=== PATIENT | male | born 1990 | race Caucasian/White ===

== ENCOUNTER 2018-11-07 13:24 | Outpatient (CLI) | payer BC ==
[~2018-11-07 13:24] MED LIST: Sodium Chloride 0.9% 15 ML NEB ONE
--- NOTE | 2018-11-07 15:16 | HP ---
HISTORY OF PRESENT ILLNESS: Mr. Jaime Ponce is a very pleasant 28-year-old gentleman, who presents to the [facility] for evaluation of an ulceration of the left medial lower leg. The patient states that the ulceration was first noted approximately 3 years ago. He states that over 4 to 5 months the wound subsequently healed with the application of Neosporin and a Band-Aid. The patient states that in April of this year, the wound recurred with greater dimensions than the wound noted three years ago. The patient states that since April of this year, the dimensions have not changed. The patient states that he is treating the ulceration with Bactroban followed by gauze, and at times an Oscar bandage. The patient is presently taking levofloxacin. The patient states he was seen in Urgent Care, and subsequently, referred to the [facility]ound Center for further evaluation and treatment. PAST MEDICAL HISTORY: Negative. PAST SURGICAL HISTORY: Negative. MEDICATIONS: Levaquin. ALLERGIES: NO KNOWN DIAGNOSED ALLERGIES. SOCIAL HISTORY: The patient admits to the occasional use of tobacco in high school. The patient admits to the occasional consumption of alcohol. FAMILY HISTORY: Family history is significant for diabetes mellitus. The patient's great grandmother was diagnosed with diabetes mellitus. The family history is negative for coronary artery disease. PHYSICAL EXAMINATION: VITAL SIGNS: Temperature 98.1, pulse 75, respirations 20, blood pressure 138/62. GENERAL: A 28-year-old gentleman sitting on table in examination room, in no acute distress. HEENT: Normocephalic and atraumatic. NECK: No nuchal rigidity. CHEST: Clear to auscultation. CV: Regular rate and rhythm. ABDOMEN: Soft. EXTREMITIES: An ulceration of the left medial lower leg is present, which measures approximately 1.2 x 0.9 cm. Nonviable tissue present within the wound margins was debrided with an excisional full-thickness debridement. No purulent drainage is associated with the wound. No erythema of the skin surrounding the wound is present. No maceration of the skin of the periwound is noted. A dorsalis pedis pulse and posterior tibial pulse are both palpable on the left. No significant edema of the left foot or lower leg is present on exam today. Varicosities are present over the left lower extremity. 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 Promogran, Hydrofera Blue, Webril, and the 3M Coban 2 Layer Compression System will be applied to the ulceration today. The patient is to continue Levaquin as previously prescribed. I will see Mr. Ponce again in 1 week. The patient has been instructed to keep the compression wrap applied in clinic today clean, dry, and intact until his followup visit in 1 week. The patient understands and is in agreement with the preceding treatment plan. Job ID: [id number]
== END 2018-11-07 13:25 | disposition home or self-care (01) ==
LOC: WCC 13:24
PROVIDERS: ATTEND Family Medicine
DX: I87.322 Chronic venous hypertension (idiopathic) with inflammation of left lower extremity (principal)
CPT/HCPCS: A4218

== ENCOUNTER 2018-11-15 10:21 | Outpatient (CLI) | payer BC ==
[~2018-11-15 10:21] MED LIST changes: +Lidocaine 2% 11 ML SYR ONE
--- NOTE | 2018-11-15 11:15 | PRG ---
DATE OF SERVICE: 11/15/2018 HISTORY: Mr. Jaime Ponce is a very pleasant 28-year-old gentleman, who presents to the [facility] for evaluation of an ulceration of the left medial lower leg. At the time of the patient's initial presentation to the Wound Center, Mr. Ponce stated that the ulceration was first noted three years previously. He stated that over 4 to 5 months, the wound subsequently healed with the application of Neosporin and a Band-Aid. The patient stated that in April of this year, the wound recurred with greater dimensions than the wound noted three years ago. The patient stated that at the time of his initial visit to the Wound Center, the dimensions had not changed since April of this year. The patient stated that he had been treating the ulceration with Bactroban followed by gauze and at times an Oscar bandage. At the time of the patient's initial visit to the Wound Center, Mr. Ponce was taking Levaquin. The patient stated that he was seen in Urgent Care and subsequently referred to the Wound Center for further evaluation and treatment. PHYSICAL EXAMINATION: VITAL SIGNS: Temperature 97.6, pulse 60, respirations 20, and blood pressure 131/61. EXTREMITIES: An ulceration of the left medial lower leg is present, which measures approximately 1.0 x 0.9 cm. The dimensions of the wound at the time of the patient's last visit were approximately 1.2 x 0.9 cm. Granulation tissue is present within the wound margins. Nonviable tissue present within the wound margins was debrided with an excisional full-thickness debridement with the use of a curette. No purulent drainage is associated with the wound. No erythema of the skin surrounding the wound is present. No maceration of the skin of the periwound is noted. No significant edema of the left foot or lower leg is present on exam today. Prominent varicosities are present over the left thigh and left lower leg. 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 Promogran, Hydrofera Blue, Webril, and the 3M Coban 2 Layer Compression System will be applied to the ulceration today. I will see Mr. Ponce again in 1 week. Again, the patient has been instructed to keep the compression wrap applied in clinic today clean, dry, and intact until his followup visit in 1 week. Job ID: [id number]
== END 2018-11-15 10:22 | disposition home or self-care (01) ==
LOC: WCC 10:21
PROVIDERS: ATTEND Family Medicine
DX: I83.228 Varicose veins of left lower extremity with both ulcer of other part of lower extremity and inflammation (principal); L97.929 Non-pressure chronic ulcer of unspecified part of left lower leg with unspecified severity
CPT/HCPCS: 11042; A4218

== ENCOUNTER 2018-11-22 13:57 | Outpatient (CLI) | payer BC ==
[~2018-11-22 13:57] MED LIST changes: -Lidocaine 2% 11 ML SYR ONE
--- NOTE | 2018-11-22 15:49 | PRG ---
DATE OF SERVICE: 11/22/2018 HISTORY: Mr. Jaime Ponce is a very pleasant 28-year-old gentleman, who presents to the [facility] Center for evaluation of an ulceration of the left medial lower leg. At the time of the patient's initial presentation to the Wound Center, Mr. Ponce stated that the ulceration was first noted 3 years previously. He stated that over 4 to 5 months, the wound subsequently healed with the application of Neosporin and a Band-Aid. The patient stated that in April of this year, the wound recurred with greater dimensions than the wound noted 3 years ago. The patient stated that at the time of his initial visit to the Wound Center, the dimensions have not changed since April of this year. The patient stated that he had been treating the ulceration with Bactroban followed by gauze and at times an Oscar bandage. At the time of the patient's initial visit to the Wound Center, Mr. Ponce was taking Levaquin. The patient stated that he was seen in Urgent Care and subsequently referred to the Wound Center for further evaluation and treatment. The patient has been receiving dressing changes of Promogran, Hydrofera Blue, Webril, and the 3M Coban 2 Layer Compression System on a weekly basis here in the Wound Center. PHYSICAL EXAMINATION: VITAL SIGNS: Temperature 97.8, pulse 70, respirations 18, and blood pressure 133/64. EXTREMITIES: The ulceration of the left medial lower leg measures approximately 0.8 x 0.9 cm. The dimensions of the wound at the time of the patient's last visit were approximately 1.0 x 0.9 cm. Granulation tissue is present within the wound margins. Nonviable tissue present within the wound margins was debrided with an excisional full-thickness debridement. No purulent drainage is associated with the wound. No erythema of the skin surrounding the wound is present. No maceration of the skin of the periwound is noted. No significant edema of the left foot or lower leg is present on exam today. 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 Promogran, Hydrofera Blue, Webril, and the 3M Coban 2 Layer Compression System will be applied to the ulceration today. I will see Mr. Ponce again in 2 weeks. The patient is to return to the Wound Center in 1 week for a dressing change. Job ID: [id number]
== END 2018-11-22 13:58 | disposition home or self-care (01) ==
LOC: WCC 13:57
PROVIDERS: ATTEND Family Medicine
DX: I83.229 Varicose veins of left lower extremity with both ulcer of unspecified site and inflammation (principal)
CPT/HCPCS: A4218

== ENCOUNTER 2018-11-30 14:16 | Outpatient (CLI) | payer BC | END 2018-11-30 14:17 | disposition home or self-care (01) | LOC: WCC 14:16 | PROVIDERS: ATTEND Family Medicine | DX: L97.322 Non-pressure chronic ulcer of left ankle with fat layer exposed (principal) | CPT/HCPCS: 29581; A4218 ==

== ENCOUNTER 2018-12-06 11:22 | Outpatient (CLI) | payer BC ==
--- NOTE | 2018-12-06 17:10 | PRG ---
DATE OF SERVICE: 12/06/2018 HISTORY: Mr. Jaime Ponce is a very pleasant 28-year-old gentleman, who presents to the [facility] Center for evaluation of an ulceration of the left medial lower leg. At the time of the patient's initial presentation to the Wound Center, Mr. Ponce stated that the ulceration was first noted 3 years previously. He stated that over 4 to 5 months, the wound subsequently healed with the application of Neosporin and a Band-Aid. The patient stated that in April of this year, the wound recurred with greater dimensions than the wound noted 3 years ago. The patient stated that at the time of his initial visit to the Wound Center, the dimensions had not changed since April of this year. The patient stated that he had been treating the ulceration with Bactroban followed by gauze and at times an Oscar bandage. At the time of the patient's initial visit to the [facility]ound Center, Mr. Ponce was taking Levaquin. The patient stated that he was seen in Urgent Care and subsequently referred to the [facility]ound Center for further evaluation and treatment. The patient has been receiving dressing changes of Promogran, Hydrofera Blue, Webril, and the 3M Coban 2 Layer Compression System on a weekly basis here in the Wound Center. PHYSICAL EXAMINATION: VITAL SIGNS: Temperature 97.8, pulse 60, respirations 16, and blood pressure 137/63. EXTREMITIES: The ulceration of the left medial lower leg has healed completely. 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 As stated above, the ulceration has completely healed. Mr. Ponce will be discharged from clinic today with followup on a p.r.n. basis. The patient states he has compression garments at home. He also states that he is undergoing evaluation for venous ablation on the left. Job ID: [id number]
== END 2018-12-06 11:23 | disposition home or self-care (01) ==
LOC: WCC 11:22
PROVIDERS: ATTEND Family Medicine
DX: I83.229 Varicose veins of left lower extremity with both ulcer of unspecified site and inflammation (principal)
CPT/HCPCS: 97602; A4218